=== PATIENT | male | born 1990 | race Caucasian/White ===

== ENCOUNTER 2017-01-22 03:32 | Emergency (ER) | payer OTHER ==
[~2017-01-22] VITALS: Ht 172.7 cm; Wt 77.1 kg
--- NOTE | 2017-01-22 03:40 | NUR ---
PT BIB [facility] TO ER BED 6, PT C/O FEELING ANXIOUS AFTER TAKING 2 OF HIS GIRLFRIENDS ADDERALL. PT PLACED ON VS MONITOR. PT RESP EVEN UNLABORED/NAD NOTED/SKIN WARM AND DRY/DENIES N/V. PT AOX4.
--- NOTE | 2017-01-22 03:50 | NUR ---
TECH AT BEDSIDE FOR EKG
--- NOTE | 2017-01-22 03:55 | NUR ---
18G IV TO LAC USING ASEPTIC TECH, BLOOD DRAWN AND HANDED OVER TO LAB AT BEDSIDE. IV FLUSHES EASILY WITH NS.
[2017-01-22] MEDS ORDERED: IV NS 0.9% 1,000 ML BAG IV ONE (04:00)
--- NOTE | 2017-01-22 04:00 | NUR ---
XRAY AT BEDSIDE
[2017-01-22 04:09] LABS: BASOPHILS # (AUTO) 0.1 /CMM (0.0-0.2); BASOPHILS % (AUTO) 1.1 % (0.0-2.0); HEMATOCRIT 46 % (39-51); HEMOGLOBIN 15.4 g/dL (13.5-17.5); LYMPHOCYTES # (AUTO) 1.5 /CMM (0.8-4.8); LYMPHOCYTES % (AUTO) 13.3 % (20.0-44.0); MEAN CORPUSCULAR HEMOGLOBIN 31 PG (26.0-33.0); MEAN CORPUSCULAR HGB CONC 34 g/dl (31.0-36.0); MEAN CORPUSCULAR VOLUME 91 fL (80-96); MONOCYTES # (AUTO) 0.7 /CMM (0.1-1.30); MONOCYTES % (AUTO) 6.2 % (2.0-12.0); NEUTROPHILS # (AUTO) 8.7 /CMM (1.8-8.9); NEUTROPHILS % (AUTO) 79.4 % (43.0-81.0); PLATELET COUNT (AUTO) 247 /CMM (150-450); RDW COEFFICIENT OF VARIATION 13.1 (11.5-15.0); RED BLOOD CELL COUNT(AUTO) 5.04 MIL/uL (4.5-6.0); WHITE BLOOD COUNT (AUTO) 10.9 K/uL (4.3-11.0)
[2017-01-22 04:19] LABS: CALCIUM, SERUM 9.8 mg/dL (8.5-10.1); CREATININE 1.2 mg/dL (0.6-1.3); POTASSIUM 3.5 mmol/L (3.5-5.1)
[2017-01-22 04:23] LABS: INR 1.04 (0.87-1.13); PROTHROMBIN TIME 10.8 SECS (9.5-12.7)
[2017-01-22 04:29] LABS: TROPONIN I 0.023 ng/mL (0.00-0.056)
[2017-01-22] MEDS ORDERED: IBUPROFEN 400 MG TABLET ONE (04:38)
[2017-01-22 04:44] VITALS: BP 163/94
--- NOTE | 2017-01-22 04:44 | NUR ---
IV removed. Catheter intact and site benign. Pressure and 4x4 applied to site. No bleeding noted. Patient discharged to home in stable condition. Written and verbal after care instructions given. Patient verbalizes understanding of instruction. Pt ambulatory with a steady gait.
[2017-01-22] MEDS ORDERED: IBUPROFEN 400 MG TABLET PO ONE (05:00)
== END 2017-01-22 04:46 | disposition home or self-care (01) ==
LOC: ER 03:39
DX: F41.9 Anxiety disorder, unspecified (principal); F15.10 Other stimulant abuse, uncomplicated; R79.1 Abnormal coagulation profile
CPT/HCPCS: 36415; 71010; 80048; 84484; 85025; 85730; 93005; 96360; 99285; A4606; J7030; Z7610